=== PATIENT | female | born 1975 | race Caucasian/White ===

== ENCOUNTER 2016-12-16 11:48 | Emergency (ER) | payer MEDICAID ==
[~2016-12-16] VITALS: Ht 172.7 cm; Wt 74.5 kg
[2016-12-16] MEDS ORDERED: MORPHINE SULFATE 4 MG/ML, 1ML IV PRN (12:30)
[2016-12-16] MEDS ORDERED: LIDOCAINE 1%, 20ML SQ ONE (12:30)
[2016-12-16] MEDS ORDERED: SODIUM CHLORIDE FLUSH 10ML SYR IVF ONE (12:30)
[2016-12-16] MEDS ORDERED: KETOROLAC 30 MG/1 ML ONE (12:59)
[2016-12-16] MEDS ORDERED: OXYcodone/APAP 5/325MG TABLET ONE (12:59)
[2016-12-16] MEDS ORDERED: OXYcodone/APAP 5/325MG TABLET PO ONE (13:00)
[2016-12-16] MEDS ORDERED: KETOROLAC 30 MG/1 ML IM ONE (13:00)
[2016-12-16] MEDS ORDERED: KETAMINE 100 MG/ML, 5ML IM ONE (14:00)
[2016-12-16] MEDS ORDERED: KETAMINE 10 MG/ML, 20ML ONE (14:06)
[2016-12-16] MEDS ORDERED: LIDOCAINE 1%, 20ML ONE (14:25)
[2016-12-16 15:20] LABS: CYTOLOGY BODY FLUID RECD INTO PATHOLOGY; CYTOLOGY BODY FLUID SOURCE OTHER - SEE COMMENT
[2016-12-16] MEDS ORDERED: ONDANSETRON ODT 4 MG ONE (15:57)
[2016-12-16] MEDS ORDERED: ONDANSETRON ODT 4 MG PO ONE (16:00)
[2016-12-16 17:33] VITALS: BP 156/96
== END 2016-12-16 17:35 | disposition home or self-care (01) ==
LOC: ED 12:29
DX: L03.313 Cellulitis of chest wall (principal); R07.89 Other chest pain; L02.414 Cutaneous abscess of left upper limb; F12.10 Cannabis abuse, uncomplicated
CPT/HCPCS: 10060; 76642; 87070; 87075; 87077; 87186; 87205; 88112; 88305; 96372; 99152; 99285; J1885; Q0162

== ENCOUNTER 2017-04-23 06:40 | Emergency (ER) | payer MEDICAID ==
[~2017-04-23] VITALS: Ht 170.2 cm; Wt 71.8 kg
[2017-04-23] MEDS ORDERED: KETOROLAC 30 MG/1 ML ONE (08:52)
[2017-04-23] MEDS: KETOROLAC 30 MG/1 ML IM ONE ×2 (08:55→08:59)
[2017-04-23] MEDS ORDERED: CLINDAMYCIN 300 MG CAPSULE PO ONE (09:00)
[2017-04-23 09:13] VITALS: BP 135/86
== END 2017-04-23 09:15 | disposition home or self-care (01) ==
LOC: ED 09:00
DX: L03.114 Cellulitis of left upper limb (principal)
CPT/HCPCS: 99283; J1885

== ENCOUNTER 2018-05-25 17:27 | Emergency (ER) | payer MEDICAID ==
[~2018-05-25] VITALS: Ht 175.3 cm; Wt 75.5 kg
[2018-05-25 17:33] VITALS: BP 149/95
[2018-05-25] MEDS ORDERED: LIDOCAINE-MPF 2%, 2ML ONE (17:46)
[2018-05-25] MEDS ORDERED: HYDROmorphone 2 MG/ML, 1ML ONE (17:49)
[2018-05-25] MEDS ORDERED: LIDOCAINE 2%, 10ML INFIL ONE (18:00)
[2018-05-25] MEDS ORDERED: HYDROmorphone 1 MG/ML, 1ML IM ONE (18:00)
== END 2018-05-25 19:17 | disposition home or self-care (01) ==
LOC: ED 18:41
DX: L03.115 Cellulitis of right lower limb (principal); L02.415 Cutaneous abscess of right lower limb; F17.200 Nicotine dependence, unspecified, uncomplicated
CPT/HCPCS: 10060; 96372; 99283; J1170; J3490; J2001

== ENCOUNTER 2018-05-31 08:31 | Emergency (ER) | payer MEDICAID ==
[~2018-05-31] VITALS: Ht 175.3 cm; Wt 75.5 kg
[2018-05-31 08:51] VITALS: BP 123/91
== END 2018-05-31 09:23 | disposition home or self-care (01) ==
LOC: ED 09:10
DX: L53.9 Erythematous condition, unspecified (principal); Z48.01 Encounter for change or removal of surgical wound dressing; I10 Essential (primary) hypertension; F17.200 Nicotine dependence, unspecified, uncomplicated
CPT/HCPCS: 99281

== ENCOUNTER 2018-06-09 10:06 | Emergency (ER) | payer MEDICAID ==
[~2018-06-09] VITALS: Ht 172.7 cm; Wt 78.0 kg
[2018-06-09 10:24] VITALS: BP 143/93
== END 2018-06-09 12:09 | disposition home or self-care (01) ==
LOC: ED 11:29
DX: M79.89 Other specified soft tissue disorders (principal); I10 Essential (primary) hypertension; F17.200 Nicotine dependence, unspecified, uncomplicated
CPT/HCPCS: 99284; 99406